=== PATIENT | male | born 2000 | race Caucasian/White ===

== ENCOUNTER 2019-02-28 20:41 | Emergency (ER) | payer OTHER ==
[2019-02-28 20:53] VITALS: BP 143/75
[2019-02-28] MEDS ORDERED: Lidocaine 1% MPF wEPI 200,000* 30 ML SDV INJ ONE (21:02)
--- NOTE | 2019-02-28 21:35 | UC ---
Laceration HPI - HPI Summary HPI Summary: 18-year-old male presents with father for laceration to his left eyebrow. States he was accidentally struck with a hockey stick just prior to arrival. No loss of consciousness. Bleeding was controlled with direct pressure prior to arrival. Patient states that he has had his tetanus updated within the last 5 years. Denies headache, visual disturbances, dizziness, vertigo, nausea, or vomiting. - History Of Current Complaint Chief Complaint: UCLaceration Stated Complaint: EYE LACERATION Time Seen by Provider: 02/28/19 20:56 Hx Obtained From: Patient Pain Intensity: 2 - Allergies/Home Medications Allergies/Adverse Reactions: Allergies Allergy/AdvReac Type Severity Reaction Status Date / Time No Known Allergies Allergy Verified 02/28/19 20:54 Home Medications: Home Medications Acutane (Acne Med) 1 tab PO BID 02/28/19 [History] Fexofenadine (NF) [Oralia 180 (NF)] 180 mg PO DAILY 02/28/19 [History Confirmed 02/28/19] PMH/Surg Hx/FS Hx/Imm Hx Previously Healthy: Yes - Denies significant PMH - Surgical History Surgical History: None - Family History Known Family History: Positive: Non-Contributory - Social History Occupation: Student Lives: Dormitory/Roommates Alcohol Use: None Substance Use Type: None Smoking Status (MU): Never Smoked Tobacco Review of Systems All Other Systems Reviewed And Are Negative: Yes Constitutional: Positive: Negative Skin: Positive: Other - See HPI Eyes: Negative: Blurred Vision, Diplopia, Photophobia Respiratory: Positive: Negative Cardiovascular: Positive: Negative Gastrointestinal: Positive: Negative Genitourinary: Positive: Negative Musculoskeletal: Positive: Negative Neurological: Positive: Negative Is Patient Immunocompromised?: No Physical Exam - Summary Physical Exam Summary: GENERAL APPEARANCE: Well developed, well nourished, alert and cooperative, and appears to be in no acute distress. HEAD: Normocephalic. Approximately 2 cm laceration that extends through the dermis to the left eyebrow with moderate edema. No obvious FB. Bleeding controlled. EYES: Conjunctiva clear. No drainage. PERRL, EOM intact. Vision is grossly intact. NECK: Neck supple, non-tender. CARDIAC: Normal S1 and S2. No S3, S4 or murmurs. Rhythm is regular. There is no peripheral edema, cyanosis or pallor. Extremities are warm and well perfused. Capillary refill is less than 2 seconds. Peripheral pulses intact. LUNGS: Clear to auscultation without rales, rhonchi, wheezing or diminished breath sounds. ABDOMEN: Positive bowel sounds. Soft, nondistended, nontender. No guarding or rebound. No masses or hepatosplenomegally. MUSKULOSKELETAL: ROM intact to all extremities. No joint erythema or tenderness. Normal muscular development. Normal gait. NEUROLOGICAL: CN II-XII intact. Strength and sensation symmetric and intact throughout. SKIN: Skin normal color, texture and turgor. See above. Triage Information Reviewed: Yes Vital Signs: Initial Vital Signs Temp 99.5 F 02/28/19 20:52 Pulse 59 02/28/19 20:52 Resp 18 02/28/19 20:52 BP 143/75 02/28/19 20:52 Pulse Ox 100 02/28/19 20:52 Vital Signs Reviewed: Yes Procedures - Procedure Summary Procedure Summary: Procedure note: Laceration repair left eyebrow Informed consent was obtained before procedure started and the appropriate timeout was taken. The area was irrigated with NS by the RN prior to the start of the procedure. The area was prepped with a chlorhexadine and NS solution. Local anesthesia was achieved using 2 ml of lidocaine 1% with epinephrine. The wound was then thoroughly explored, no FB noted, before wound margins were brought into good alignment and 6 interrupted sutures were placed using 5-0 Prolene. Total length of the wound after repair was 2 cm. Estimated blood loss was minimal. Antibiotic ointment was applied. Anticipatory guidance, as well as standard post-procedure care was discussed with patient. Return precautions are given. The patient tolerated the procedure well without complications. Patient is to follow up in 5-7 days for suture removal and evaluation of the laceration. Laceration Course/Dx - Course/Dx Course Of Treatment: 18-year-old male presents with father for laceration to his left eyebrow. States he was accidentally struck with a hockey stick just prior to arrival. No loss of consciousness. Bleeding was controlled with direct pressure prior to arrival. Patient states that he has had his tetanus updated within the last 5 years. Denies headache, visual disturbances, dizziness, vertigo, nausea, or vomiting. Afebrile. Vital signs stable. Exam was remarkable for an approximately 2 cm laceration that extended through the dermis to the left eyebrow. The wound was irrigated by the RN prior to repair. The wound was anesthetized and explored with no foreign bodies were noted. I repaired the laceration with a total of 6 interrupted sutures using 5-0 Prolene. Wound care , anticipatory guidance, and warning symptoms reviewed with the patient. He is to return or follow-up with his primary care provider in 5-7 days to have the sutures removed. Verbalizes understanding and agrees with plan of care. - Differential Dx - Laceration/Wound Differental Diagnoses: Laceration - Diagnosis Provider Diagnosis: Laceration of left eyebrow Discharge - Sign-Out/Discharge Documenting (check all that apply): Patient Departure All imaging exams completed and their final reports reviewed: No Studies - Discharge Plan Condition: Stable Disposition: HOME Patient Education Materials: Care For Your Stitches (ED), Facial Laceration (ED ) Referrals: Maximiliano Amato MD [Primary Care Provider] - Additional Instructions: Your laceration was repaired using stitches. The stitches will need to come out and 5-7 days. He may return here or follow up with her primary care provider to have this done. Be sure to apply ice for 15-20 minutes at least 4 times a day to help reduce swelling. The wound should be cleaned at least once a day with a mild soap and water. You may shower as normal. Apply a small amount of antibiotic ointment to the wound at least twice a day. Keeping the wound moist will help reduce scarring. The numbing medication that was used tonight will wear off in about 3-4 hours. You may take acetaminophen (Tylenol) or ibuprofen (Advil, Motrin) according to directions as needed for pain. Watch for signs of infection including fever greater than 100.5 F, redness that spreads, increased swelling, pus draining from the wound, or pain that is not managed with pain medication. Seek immediate medical attention if any of these occur. - Billing Disposition and Condition Condition: STABLE Disposition: Home
== END 2019-02-28 21:40 | disposition home or self-care (01) ==
LOC: UCEAST 20:41
DX: S01.112A Laceration without foreign body of left eyelid and periocular area, initial encounter (principal); W22.8XXA Striking against or struck by other objects, initial encounter; Y92.9 Unspecified place or not applicable
CPT/HCPCS: 12011; 99201; G0463; J2001